=== PATIENT | male | born 1970 | race Caucasian/White ===

== ENCOUNTER → 2017-03-18 | Day surgery (SDC) | payer BC ==
[2017-03-10 13:42] VITALS: Ht 177.8 cm; Wt 79.5 kg
[~2017-03-18] VITALS: Ht 177.8 cm; Wt 79.5 kg
[~2017-03-18] MED LIST: LIDOCAINE HCL 2% 2 ML VIAL (20MG/ML) ONE; MIDAZOLAM HCL 1 MG/ML 2ML VIAL ONE; ONDANSETRON INJ 2 MG/ML 2 ML VIAL ONE; PRED20TA2 PO; PROPOFOL IV EMULSION 10 MG/ML 20 ML VIAL IV ONE; SODIUM CHLORIDE 0.9% 500ML 500 ML IV ONE; SULF500T35 PO
--- NOTE | 2017-03-18 14:59 | Endo History and Physical ---
History & Physical Date of Service: Mar 18, 2017. Chief Complaint: ulcerative colitis Referring Physician: Dr. Shaun Biggs History of Present Illness 46 yo CM who presents for colonoscopy secondary to ulcerative colitis. Past Surgical History Hx Cardiac Surgery: No Hx Internal Defibrillator: No Hx Pacemaker: No Hx Abdominal Surgery: No Hx of Implantable Prosthesis: No Hx Post-Op Nausea and Vomiting: No Hx Cancer Surgery: No Hx Thoracic Surgery: No Hx Orthopedic: No (LEFT KNEE ARTHROSCOPY) Hx Urinary Tract Surgery: No Family History Colon CA, IBD Social History Smoking Status: Former Smoker Hx Substance Use: No Hx Alcohol Use: Yes (OCCASIONALLY) Allergies Coded Allergies: Penicillins (Verified Allergy, Unknown, A CHILD, 03/10/17) Shellfish (Verified Allergy, Unknown, STOMACH CRAMPING, HIVES, 03/10/17) Current Medications Reported Home Medications Medications Dose Route/Sig Max Daily Dose Days Date Category Prednisone Tab (Prednisone) 20 Mg Tab 2 Tab PO DIRECTED PRN 5 11/10/14 Reported Sulfazine Ec (Sulfasalazine) 500 Mg Tabdr 3 Tab PO BID 11/07/11 Reported Vital Signs Weight (Kilograms): 79.55 Height (Feet): 5 Height (Inches): 10 Date Time Temp Pulse Resp B/P (MAP) Pulse Ox O2 Delivery O2 Flow Rate FiO2 03/18/17 14:32 36.7 69 16 145/82 (103) 97 Room Air Physical Exam General Appearance: WD/WN, no apparent distress Respiratory/Chest: Auscultation: breath sounds normal Cardiovascular: Heart Auscultation: RRR Abdomen: Bowel Sounds: normal Inspection & Palpation: soft, non-distended, no tenderness, guarding & rebound Assessment and Plan Assessment: 46 yo CM who presents for colonoscopy secondary to ulcerative colitis. Plan: Proceed with colonoscopy.
--- NOTE | 2017-03-18 15:56 | GI REPORT ---
Procedure Date: 03/18/2017 3:24 PM Procedure: Colonoscopy Indications: Last colonoscopy: March 2015, Disease activity assessment of chronic ulcerative pancolitis Medicines: Monitored Anesthesia Care Complications: No immediate complications. Estimated Blood Loss: Estimated blood loss: none. Procedure: Pre-Anesthesia Assessment: - Prior to the procedure, a History and Physical was performed, and patient medications and allergies were reviewed. The patient's tolerance of previous anesthesia was also reviewed. The risks and benefits of the procedure and the sedation options and risks were discussed with the patient. All questions were answered, and informed consent was obtained. Prior Anticoagulants: The patient has taken no previous anticoagulant or antiplatelet agents. ASA Grade Assessment: II - A patient with mild systemic disease. After reviewing the risks and benefits, the patient was deemed in satisfactory condition to undergo the procedure. After I obtained informed consent, the scope was passed under direct vision. Throughout the procedure, the patient's blood pressure, pulse, and oxygen saturations were monitored continuously. The scope was introduced through the anus and advanced to the terminal ileum. The colonoscopy was performed without difficulty. The patient tolerated the procedure well. The quality of the bowel preparation was good. The terminal ileum, ileocecal valve, appendiceal orifice, and rectum were photographed. Findings: Inflammation characterized by erythema, friability, loss of vascularity and confluent ulcerations was found in a continuous and circumferential pattern from the rectum to the cecum. This was moderate in severity. Biopsies were taken with a cold forceps for histology. Impression: - Inflammation was found from the rectum to the cecum secondary to pancolitis ulcerative colitis. Biopsied. Recommendation: - Resume previous diet. - Continue present medications. - Repeat colonoscopy for surveillance based on pathology results. - Return to primary care physician as previously scheduled. Jay Jay Cardenas DO 03/18/2017 3:55:32 PM This report has been signed electronically. Note Initiated On: 03/18/2017 3:24 PM I attest to the content of the Intraoperative Record and orders documented therein, exceptions below
--- NOTE | 2017-03-18 15:56 | Discharge Instructions ---
Endoscopy Patient Instructions Date / Procedure(s) Performed Mar 18, 2017. Colonoscopy Allergy Information Coded Allergies: Penicillins (Verified Allergy, Unknown, A CHILD, 03/10/17) Shellfish (Verified Allergy, Unknown, STOMACH CRAMPING, HIVES, 03/10/17) Discharge Date / Findings Mar 18, 2017. Ulcerative pancolitis s/p biopsies Medication Instructions OK to resume all medications today as prescribed Reported Home Medications Medications Dose Route/Sig Max Daily Dose Days Date Category Prednisone Tab (Prednisone) 20 Mg Tab 2 Tab PO DIRECTED PRN 5 11/10/14 Reported Sulfazine Ec (Sulfasalazine) 500 Mg Tabdr 3 Tab PO BID 11/07/11 Reported Provider Instructions Activity Restrictions - No exercising or heavy lifting for 24 hours. - Do not drink alcohol the day of the procedure. - Do not drive a car or operate machinery until the day after the procedure. - Do not make any important decisions or sign important papers in 24 hours after the procedure. Following Day: - Return to full activity which may include returning to work/school. Diet Start your diet with liquids and light foods (jello, soup, juice, toast). Then eat your usual diet if not nauseated. Treatment For Common After Affects For mild abdominal pain, bloating, or excessive gas: - Rest - Eat lightly - Lie on right side Follow-Up Information Follow-up with Dr. Shaun Biggs as scheduled Anesthesia Information What You Should Know You have had a procedure that required some medicine to reduce anxiety and discomfort. This treatment is called moderate sedation. After receiving the treatment, you may be sleepy, but you will be able to breathe on your own. The effects of the treatment may last for several hours. Follow these instructions along with Activity/Diet recommendations noted above: * Do NOT do anything where dizziness or clumsiness would be dangerous. * Rest quietly at home today, then you can be up and about tomorrow. * Have a responsible person stay with you the rest of today. * You may have had an I.V. today. If so, you may take the dressing off later today. Recommendations Call your doctor if: * Trouble breathing * Continuous vomiting for more than 24 hours * Temperature above 101 degrees * Severe abdominal pain or bloating * Pain not relieved by pain medicine ordered * There is increased drainage or redness from any incision * A large amount of rectal bleeding greater than 2-3 tablespoons. (If you had a polyp/s removed or have hemorrhoids, a small amount of blood - from the rectum is to be expected.) * You have any unanswered questions or concerns. IN THE EVENT OF A SERIOUS EMERGENCY, GO TO THE NEAREST EMERGENCY ROOM Your discharge instructions were prepared by provider Jay Jay Cardenas. Patient Instructions Signature Page Olegario Weems Patient (or Guardian) Signature/Date: I have read and understand the instructions given to me by my caregivers. Caregiver/RN/Doctor Signature/Date: The above-named patient and/or guardian has received patient instructions on this date. + Original Patient Signature Page (only) stays with chart. Please make copy for patient.
[2017-03-18 16:25] VITALS: BP 118/78; PULSE 56; O2SAT 100
--- NOTE | 2017-03-18 18:38 | Anesthesiology Progress Note ---
Anesthesia Post Op Note Date & Time Mar 18, 2017 at 18:38 Vital Signs Pain Intensity: 0 Vital Signs Past 12 Hours Date Time Temp Pulse Resp B/P (MAP) Pulse Ox O2 Delivery O2 Flow Rate FiO2 03/18/17 16:25 56 16 118/78 (91) 100 Room Air 03/18/17 16:10 57 16 116/74 (88) 96 Room Air 03/18/17 15:55 60 16 112/70 (84) 97 Room Air 03/18/17 14:32 36.7 69 16 145/82 (103) 97 Room Air Notes Mental Status: alert / awake / arousable, participated in evaluation Pt Amnestic to Procedure: Yes Nausea / Vomiting: adequately controlled Pain: adequately controlled Airway Patency, RR, SpO2: stable & adequate BP & HR: stable & adequate Hydration State: stable & adequate Anesthetic Complications: no major complications apparent
== END | disposition home or self-care (01) ==
LOC: C.GI 14:17
PROVIDERS: ATTEND Internal Medicine
DX: K51.00 Ulcerative (chronic) pancolitis without complications (principal); Z87.891 Personal history of nicotine dependence; Z80.0 Family history of malignant neoplasm of digestive organs; Z83.79 Family history of other diseases of the digestive system; Z79.899 Other long term (current) drug therapy